=== PATIENT | female | born 1955 | race Caucasian/White ===

== ENCOUNTER 2017-12-08 10:03 | Day surgery (SDC) | payer OTHER ==
[~2017-12-08 10:03] MED LIST: LIDOCAINE HCL 1% MPF 30 SOL ONE; PROPOFOL 500 MG/50 ML EMU IV ONE
[2017-12-08 11:29] VITALS: TEMP 97.4
[2017-12-08 12:03] VITALS: O2SAT 98
[2017-12-08 12:04] VITALS: BP 135/78; PULSE 70; RESP 20
== END 2017-12-08 12:15 | disposition home or self-care (01) | DRG 392 ==
LOC: SURG 10:03
PROVIDERS: ATTEND Internal Medicine Gastroenterology
DX: R13.10 Dysphagia, unspecified (principal); K22.2 Esophageal obstruction; R93.3 Abnormal findings on diagnostic imaging of other parts of digestive tract; K44.9 Diaphragmatic hernia without obstruction or gangrene; K29.70 Gastritis, unspecified, without bleeding
CPT/HCPCS: 99001; J2001; J2704